=== PATIENT | male | born 1985 | race Asian ===

== ENCOUNTER 2021-04-12 19:06 | Emergency (ER) | payer MEDICAID ==
[~2021-04-12] VITALS: Ht 200.7 cm; Wt 114.8 kg
--- NOTE | 2021-04-12 19:26 | NUR ---
Dr. Hogan at bedside for MSE.
[2021-04-12] MEDS ORDERED: HYDROMORPHONE 1 MG/1 ML DISP.SYRIN IV ONE (19:30)
[2021-04-12] MEDS ORDERED: ONDANSETRON 4 MG/2 ML VIAL IV ONE (19:30)
[2021-04-12] MEDS ORDERED: DIATR MEGLU/DIATRIZOATE SODIUM 30 ML BOTTLE PO ONE ×2 (19:30→19:45)
[2021-04-12 19:43] LABS: HEMATOCRIT 41.6 % (36.7-47.1); MEAN CORPUSCULAR HEMOGLOBIN 26.9 uug (23.8-33.4); MEAN CORPUSCULAR VOLUME 80.9 fL (73.0-96.2); PLATELET COUNT (AUTO) 388 K/uL (152-348)
[2021-04-12] MEDS ORDERED: HYDROMORPHONE 1 MG/1 ML DISP.SYRIN ONE (19:44)
[2021-04-12] MEDS ORDERED: ONDANSETRON 4 MG/2 ML VIAL ONE (19:44)
[2021-04-12] MEDS ORDERED: IOHEXOL 300MG/ML 100 ML INFUS..BTL ONE (19:44)
[2021-04-12] MEDS ORDERED: SWABABLE VALVE TRANSFER SET EA MC ONE (19:44)
[2021-04-12] MEDS ORDERED: DIATR MEGLU/DIATRIZOATE SODIUM 30 ML BOTTLE ONE (19:44)
[2021-04-12] MEDS ORDERED: IV NORMAL SALINE 250 ML IV ONE (19:44)
[2021-04-12 19:48] LABS: CREATININE 1.1 mg/dL (0.6-1.3); POTASSIUM 3.5 mmol/L (3.5-5.1)
--- NOTE | 2021-04-12 19:51 | NUR ---
Pt provided urine sample, sent to lab.
[2021-04-12 19:53] LABS: BILIRUBIN,DIRECT 0.1 mg/dL (0.0-0.2); BILIRUBIN,TOTAL 0.3 mg/dL (0.2-1.0); TOTAL PROTEIN, SERUM 7.8 g/dL (6.4-8.2)
--- NOTE | 2021-04-12 19:59 | NUR ---
Pt out of ER for CT.
--- NOTE | 2021-04-12 20:21 | NUR ---
Pt back to ER from CT.
[2021-04-12] MEDS ORDERED: HYDR-4209 PO (20:29)
[2021-04-12] MEDS ORDERED: ONDA4TAB5 PO (20:29)
--- NOTE | 2021-04-12 20:40 | NUR ---
Patient discharged to home in stable condition. Written and verbal after care instructions given. Patient verbalizes understanding of instructions. Stressed follow up or return to ER for worsening s/s. Patient out of ER with steady gait, no acute signs of distress, VSS, all belongings taken, IV site discontinued, provided with copies of lab, CT, and Xray results, instructed not to drive, to be driven home by girlfriend via private vehicle.
[2021-04-12 20:41] VITALS: BP 155/90
== END 2021-04-12 20:42 | disposition home or self-care (01) ==
LOC: ER 19:15
DX: S70.12XA Contusion of left thigh, initial encounter (principal); S30.1XXA Contusion of abdominal wall, initial encounter; S20.212A Contusion of left front wall of thorax, initial encounter; V49.40XA Driver injured in collision with unspecified motor vehicles in traffic accident, initial encounter; R52 Pain, unspecified; N20.0 Calculus of kidney; R03.0 Elevated blood-pressure reading, without diagnosis of hypertension
CPT/HCPCS: 36415; 71045; 74177; 80048; 80076; 83690; 85025; 85730; 96374; 96375; 99285; J1170; J2405; Q9967; A4663; J7050; Q9963